=== PATIENT | female | born 1955 | race Two or more races ===

== ENCOUNTER 2016-02-23 05:35 | Inpatient (IN) | payer BC ==
--- NOTE | 2016-02-21 22:50 | PREOPHP ---
DATE OF ADMISSION: 02/23/2016 The patient is coming for surgery on 02/23/2016. HISTORY OF PRESENT ILLNESS: This is a 59-year-old female, 4, para 4, with 3 living children . The fourth vaginal delivery at the age of 3. This patient's last menstrual period was at ag e 49. She has been referred to me due to a mass that comes out of her vagina, with also of urinary incontinence with urgency and stress incontinence. She has no pain on urination. She feels dry. S he is not sexually active. She has constipation. This patient has had diabetes for 12 years, contr olled with metformin twice a day, and she had a previous tubal ligation. ALLERGIES: SHE HAS NO ALLERGIES. FAMILY HISTORY: Breast cancer in her sister at the age of 39. Father is alive. Her mother of a stroke. REVIEW OF SYSTEMS: Negative for cardiovascular disease, lung disease, endocrine disease, except for diabetes. PHYSICAL EXAMINATION: VITAL SIGNS: The blood pressure is 110/80, pulse is 80, she is afebrile. She weighs 167. She is 5 feet 4 inches. HEAD AND NECK: Normal. BREASTS: Soft, nontender, no masses. CHEST: Clear. HEART: Normal sinus rhythm. LUNGS: Clear. ABDOMEN: Soft, nontender, no masses. GENITALIA: With vaginal atrophy, a cystourethrocele grade III, with a rectocele grade III, uterine prolapse grade III, with a normal to small size uterus. EXTREMITIES: Normal. DIAGNOSES: 1. Pelvic prolapse, grade III. 2. Mixed incontinence with urinary stress incontinence and urgency. 3. Rectocele. 4. Constipation. 5. Diabetes. 6. Menopausal 7. Vaginal atrophy. PLAN: She is undergoing a vaginal total hysterectomy, and anterior and posterior repair, with a sli ng and a graft. The patient has been treated with Premarin cream. The urinalysis has been normal. She was advised of the possibility of an abdominal opening in case of complications. She had a goo d Pap smear. HPV was positive, most likely due to her prolapse. The patient has been advised of th e possible risks and possible complications of the uterus, with her alternatives and options. Writt en information was provided. She had no more questions, and she agreed to go ahead with the procedu re with full understanding and no more questions. She was advised of using a sling versus not using a sling and a graft, with all the possible risks and complications, and she had agreed to go ahead with it. Dictated By: TALA PORTER/SARAH Conf#: [id number] DID#: [id number]
[~2016-02-23] VITALS: Ht 162.6 cm; Wt 73.1 kg
[2016-02-23] VITALS (18 sets, daily range): BP systolic 114–139; BP diastolic 65–83; PULSE 60–92; RESP 10–21; Ht 162.6 cm; Wt 73.1 kg
[2016-02-23] MEDS ORDERED: METF-385 PO (06:56)
[2016-02-23] MEDS ORDERED: CALC600T11 PO (06:59)
[2016-02-23] MEDS ORDERED: OMEG1CAP2 PO (06:59)
[2016-02-23] MEDS ORDERED: FOL8 PO (06:59)
[2016-02-23] MEDS ORDERED: PYRI25TA12 PO (07:04)
[2016-02-23] MEDS ORDERED: CYAN500T46 PO (07:04)
[2016-02-23] MEDS ORDERED: GLUC15002 PO (07:04)
[2016-02-23] MEDS ORDERED: THROMBIN 5000 UNIT VIAL ONE (07:08)
[2016-02-23] MEDS ORDERED: BUPIVACAINE 0.25%/EPI (SDV) 30 ML INJ ONE ×2 (07:08→08:33)
[2016-02-23] MEDS ORDERED: MIDAZOLAM 1 MG/ML 2 ML INJ ONE (07:37)
[2016-02-23] MEDS ORDERED: FENTAnyl 50 MCG/ML VIAL ONE (07:37)
[2016-02-23] MEDS ORDERED: morphine SULFATE/PF (10 MG/10 ML) INJ ONE (07:38)
[2016-02-23] MEDS ORDERED: PROPOFOL 20 ML ONE (10:28)
[2016-02-23] MEDS ORDERED: ONDANSETRON 4 MG INJ ONE (10:28)
[2016-02-23] MEDS ORDERED: CEFAZOLIN 1 GM INJ ONE (10:28)
[2016-02-23] MEDS ORDERED: LIDOCAINE 2% (SDV) 5 ML INJ ONE (10:28)
[2016-02-23] MEDS ORDERED: DIPHENHYDRAMINE 50 MG CAP PO PRN (10:30)
[2016-02-23] MEDS ORDERED: BISACODYL (EC) 5 MG TAB PO PRN (10:30)
[2016-02-23] MEDS ORDERED: ZOLPIDEM 5 MG TAB PO PRN (10:30)
[2016-02-23] MEDS ORDERED: HYDROmorphONE 1 MG/ML SYG IV PRN (10:30)
[2016-02-23] MEDS ORDERED: HYDROCODONE/APAP (5/325) TAB PO PRN ×2 (10:30)
--- NOTE | 2016-02-23 10:46 | OPPN ---
Date/Time of Note Date/Time of Note DATE: 02/23/16 TIME: 10:38 Operative/Procedure Note VAGINAL TOTAL HYSTERECTOMY, LEFT OVARIAN BIOPSY ANTERIOR AND POSTERIOR REPAIR SUBURETHRAL SLING PROCEDURE- OBTRYX SLING ACELL AND XENFORM GRAFT Pre-Operative Diagnosis COMPLETE UTEROVAGINAL PROLAPSE CYSTOURETHROCELE GRADE 3 RECTOCELE MIXED INCONTINENCE CONSTIPATION DIABETES MENOPAUSE Post-Operative Diagnosis SAME Surgeon: TALA PERKINS MD Payroll And Benefits Assistant: MAHIN MOORE MD Anesthesiologist: MELISA HOLDEN MD Implants/Grafts ACELL AND XENFORM GRAFT OBTRYX SLING Estimated blood loss: 10 - 50 ml's Drains MCCARTNEY CATHETER Specimens UTERUS , LEFT OVARIAN BIOPSY VAGINAL BIOPSY Complications: None Anesthesia type: general TALA PERKINS MD Feb 23, 2016 10:46
[2016-02-23] MEDS ORDERED: ONDANSETRON 4 MG INJ IV PRN (11:00)
[2016-02-23] MEDS ORDERED: GLUCOSE GEL 15 GRAM TUBE PO PRN ×2 (11:30)
[2016-02-23] MEDS ORDERED: GLUCOSE GEL 15 GRAM TUBE BUCCAL PRN (11:30)
[2016-02-23] MEDS ORDERED: DEXTROSE 50% 50 ML SYRINGE IV PRN ×2 (11:30)
[2016-02-23] MEDS ORDERED: GLUCAGON 1 MG INJ IM PRN (11:30)
[2016-02-23] MEDS ORDERED: FLUCONAZOLE 150 MG TAB PO ONE (12:00)
[2016-02-23] MEDS: LACTATED RINGER'S 1,000 ML IV SCH ×3 (12:33→23:01)
[2016-02-23] MEDS: KETOROLAC 30 MG INJ IV SCH ×3 (12:34→23:01)
[2016-02-23] MEDS: METOCLOPRAMIDE 10 MG TAB PO SCH ×2 (12:38→17:30)
--- NOTE | 2016-02-23 12:40 | OPR ---
DATE OF OPERATION: 02/23/2016 PROCEDURES: 1. Vaginal total hysterectomy. 2. Anterior and posterior colporrhaphy. 3. Suburethral and mid urethral Obtryx sling. 4. and Xenform graft. 5. Left ovarian biopsy. PREOPERATIVE DIAGNOSES: Complete uterovaginal prolapse with cystourethrocele grade III, rectocele g rade III, mixed incontinence, constipation, diabetes, and menopause. POSTOPERATIVE DIAGNOSIS: Complete uterovaginal prolapse with cystourethrocele grade III, rectocele grade III, mixed incontinence, constipation, diabetes, and menopause. SURGEON: Tala Abreu MD OIL RAG WASHER: Rene Loyd MD ANESTHESIOLOGIST: Adair Kuhn MD COMPLICATIONS: None. DESCRIPTION OF PROCEDURE: Patient was given general anesthesia and Duramorph anesthesia, placed in the lithotomy position. The perineal and vaginal area were prepped and draped. The examination und er anesthesia revealed that the uterus was prolapsed to a complete prolapse of the uterus, the cervi x seen outside. The vaginal speculum was applied, and the cervix was held with a Yahir clamp. A ci rcular injection at the cervical-vaginal junction was done with Xylocaine and epinephrine, and an in cision was made at this level. The anterior cul-de-sac was found. Then the posterior cul-de-sac wa s found. There was a small rent visualized anteriorly to the bladder that was sutured in 3 layers w ith 2-0 Vicryl and #0 Vicryl. The cardinal ligaments and uterosacral ligaments were clamped with He aney clamps and sutured with 2 sutures with #1 Vicryl and good hemostasis was achieved. The uterine vessels, ovarian ligament, and tubes in both sides were also clamped, cut, and ligated with figure- of-eight sutures with #1 Vicryl. The uterus was removed by inverting the uterus. The uterus body w as small, has a long cervix. The visualized left ovarian growth that was possibly consistent with a fibroid that was biopsied with cautery and removed. Both ovaries were very high up and they were s een being normal. The tubes were not apparently close to the incision. The peritonealization was d one by applying sutures to the posterior vaginal mucosa interruptedly with #1 Vicryl, and the suture around the peritoneum a pursestring suture of #0 Vicryl was used, and the cavity was closed. The a dnexal pedicles and the cardinal ligament stumps were tied to ipsilateral side. These sutures were brought out to the anterior and posterior vaginal mucosa. The vaginal mucosa was closed vertically with interrupted sutures with #1 Vicryl. At the time where the adnexal ligaments and cardinal ligam ents were tied up, a good lift of the vaginal vault was observed. The hemostasis was good. At this time, a midline incision was made 2 cm below the urethral meatus after injection of Xylocaine and e pinephrine and Marcaine with epinephrine all the way down to the vaginal cuff, and the vagina anteri yamilet was incised in the midline and the bladder was from the anterior vaginal mucosa. The Dao catheter had been placed in the bladder with clear urine. A pursestring suture with #2-0 Akash ryl was done around the bladder for plication of the fundus. The lateral dissection was done digita lly to the obturator internal muscle. A small incision was made 2 cm below the adductor longus tend on parallel to the clitoris, and the Obtryx needle was passed through this level and was retrieved p eriurethrally. The sling was attached, and this was done on both sides, and the sling arms were pas sed through the obturator canal. The remnants of the sling were trimmed at the level of the skin, a nd Dermabond was used on this area. A piece of ACell was placed between the urethral area, bladder, between that and the sling and on top of that a piece of Xenform was applied to prevent the protrus ion of the sling and the bladder area. The other side of the sling was also covered with a piece of Xenform and ACell, and the vagina was closed after injection of FloSeal in both corners. At this t esther, the hemostasis had been very good. The vagina was closed vertically with interrupted sutures w ith 2-0 Vicryl, and the posterior colporrhaphy was started by making a triangular incision at the pe rineum. This portion of the skin was removed, and a midline incision was made after injection of th e Xylocaine and epinephrine about 5 cm up the vaginal canal, the rectocele was from the po sterior vaginal mucosa and plicated with 2-0 Vicryl. The remnant of vaginal mucosa was trimmed. Th e vaginal mucosa was closed with 2-0 Vicryl interrupted sutures. At the perineal area, deep stitche s were approximating the levator ani muscle from one side to the other side with #1 Vicryl. The per ineal area was closed as a regular episiotomy with 2-0 Vicryl and 3-0 Vicryl, and Xeroform gauze was left in the vagina. The patient tolerated the procedure well and left the OR awake and stable. Sp onge counts and instrument counts were correct. Intravenous antibiotics were given for prophylaxis. Blood loss was minimal. The urine was clear at the end of the procedure, and the patient left the OR awake and stable. Dictated By: TALA PORTER/SARAH Conf#: [id number] DID#: [id number]
[2016-02-23] MEDS: CEFAZOLIN 1 GM/50 ML (PMX) 50 ML IVPB SCH ×2 (14:43→21:08)
[2016-02-23] MEDS: metFORMIN 850 MG TAB PO SCH (17:30)
[2016-02-23] MEDS ORDERED: metFORMIN 850 MG TAB PO SCH (18:00)
[2016-02-24] MEDS: METOCLOPRAMIDE 10 MG TAB PO SCH ×5 (00:14→22:39)
[2016-02-24 00:26] VITALS: BP 112/57; RESP 18
[2016-02-24] MEDS: KETOROLAC 30 MG INJ IV SCH ×4 (04:44→22:39)
[2016-02-24 05:16] VITALS: BP 110/63; PULSE 73; RESP 18
[2016-02-24 05:26] LABS: POTASSIUM 3.6 mmol/L (3.5-5.1)
[2016-02-24 05:29] LABS: CREATININE 0.58 mg/dl (0.44-1.00)
[2016-02-24 05:35] LABS: BASOPHILS % 0.3 % (0.0-2.0); EOSINOPHILS # 0.1 10^3/ul (0.0-0.5); EOSINOPHILS % 1.2 % (0.0-7.0); HEMATOCRIT 34.6 % (37.0-47.0); HEMOGLOBIN 11.8 g/dl (12.0-16.0); LYMPHOCYTES # 1.7 10^3/ul (0.8-2.9); LYMPHOCYTES % 21.4 % (15.0-51.0); MEAN CORPUSCULAR HEMOGLOBIN 29.9 pg (29.0-33.0); MEAN CORPUSCULAR HGB CONC 34.2 g/dl (32.0-37.0); MEAN CORPUSCULAR VOLUME 87.5 fl (82.0-101.0); MEAN PLATELET VOLUME 8.9 fl (7.4-10.4); MONOCYTE # 0.7 10^3/ul (0.3-0.9); MONOCYTES % 9.2 % (0.0-11.0); NEUTROPHIL # 5.5 10^3/ul (1.6-7.5); NEUTROPHILS % 67.9 % (39.0-77.0); PLATELET COUNT 220 10^3/UL (140-440); RED BLOOD COUNT 3.96 10^6/ul (4.20-5.40); RED CELL DISTRIBUTION WIDTH 13.8 % (11.5-14.5); UNCORRECTED WBC 8.1 10^3/ul (4.8-10.8); WHITE BLOOD COUNT 8.1 10^3/ul (4.8-10.8)
[2016-02-24] MEDS: CEFAZOLIN 1 GM/50 ML (PMX) 50 ML IVPB SCH ×3 (05:48→22:39)
[2016-02-24 06:21] LABS: CONDITION 1
[2016-02-24 07:39] VITALS: BP 104/58; RESP 18
[2016-02-24] MEDS: metFORMIN 850 MG TAB PO SCH ×2 (08:54→17:01)
[2016-02-24] MEDS: PYRIDOXINE 50 MG TAB PO SCH (08:54)
[2016-02-24] MEDS ORDERED: PYRIDOXINE 50 MG TAB PO SCH (09:00)
--- NOTE | 2016-02-24 11:02 | PN ---
Date/Time of Note Date/Time of Note DATE: 02/24/16 TIME: 10:59 Assessment/Plan Lines/Catheters IV Catheter Type (from Nrsg): Peripheral IV Garcia in Place (from Nrsg): Yes Subjective 24 Hr Interval Summary feels good not in pain afebrile blood sugar elevated diet adjusted patient advised about surgery findings and procedure and she is grateful urine culture after surgery with E COLI 100.000 we will treat Constitutional: BM, ambulates, flatus, improved, no complaints, urine output Feeding: advancing diet Pain Control: well controlled Detailed Summary Eyes: no complaints ENT: no complaints Respiratory: no complaints Cardiovascular: no complaints Gastrointestinal: no complaints Genitourinary: no complaints Musculoskeletal: no complaints Skin: no complaints Neurologic: no complaints Endocrine: no complaints Lymphatic: no complaints Psychological: nl mood/affect, no complaints Immunologic: no complaints Exam/Review of Systems Vital Signs Vitals Vital Signs Date Time Temp Pulse Resp B/P Pulse Ox O2 Delivery O2 Flow Rate FiO2 02/24/16 07:39 98.9 78 18 104/58 93 02/24/16 05:16 Room Air Intake and Output 02/23/16 02/23/16 02/24/16 15:00 23:00 07:00 Intake Total 1400 ml 650 ml 1950 ml Output Total 30 ml 1300 ml 2100 ml Balance 1370 ml -650 ml -150 ml Exam Free Text/Dictation garcia to stay for 2 weeks due to extensive surgery Constitutional: alert, oriented, well developed Psych: nl mood/affect, no complaints Head: atraumatic, normocephalic Eyes: EOMI, nl conjunctiva, nl lids, nl sclera ENMT: mucosa pink and moist, nl external ears & nose, nl lips & teeth, nl nasal mucosa & septum Neck: non-tender, supple Respiratory: clear to auscultation, normal air movement Cardiovascular: nl pulses, regular rate and rhythm Gastrointestinal: nl liver, spleen, non-tender, soft Genitourinary - Female: No CMT, No CVA tenderness, No nl adnexae, No nl external genitalia, No other, No uterus Musculoskeletal: nl extremities to inspection, nl gait and stance Extremities: normal pulses Neurological: LOCKER ATTENDANT II-XII intact, nl mental status, nl speech, nl strength Skin: nl turgor, rash or lesions Lymph: nl lymph nodes Results Result Diagram: 02/24/16 0421 02/24/16 0421 TALA PERKINS MD Feb 24, 2016 11:02
[2016-02-24] MEDS: LACTATED RINGER'S 1,000 ML IV SCH ×2 (11:20→22:39)
[2016-02-24 20:41] VITALS: BP 121/64; RESP 18
[2016-02-25] MEDS: CEFAZOLIN 1 GM/50 ML (PMX) 50 ML IVPB SCH ×2 (05:07→14:08)
[2016-02-25] MEDS: METOCLOPRAMIDE 10 MG TAB PO SCH ×3 (05:07→17:25)
[2016-02-25] MEDS: KETOROLAC 30 MG INJ IV SCH ×3 (05:07→17:24)
[2016-02-25 05:53] LABS: BASOPHILS % 0.3 % (0.0-2.0); EOSINOPHILS # 0.1 10^3/ul (0.0-0.5); EOSINOPHILS % 1.5 % (0.0-7.0); HEMOGLOBIN 12.1 g/dl (12.0-16.0); LYMPHOCYTES # 1.7 10^3/ul (0.8-2.9); LYMPHOCYTES % 21.2 % (15.0-51.0); MEAN CORPUSCULAR HEMOGLOBIN 30.2 pg (29.0-33.0); MEAN CORPUSCULAR HGB CONC 34.6 g/dl (32.0-37.0); MEAN CORPUSCULAR VOLUME 87.3 fl (82.0-101.0); MEAN PLATELET VOLUME 8.8 fl (7.4-10.4); MONOCYTE # 0.8 10^3/ul (0.3-0.9); MONOCYTES % 9.4 % (0.0-11.0); NEUTROPHIL # 5.6 10^3/ul (1.6-7.5); NEUTROPHILS % 67.6 % (39.0-77.0); PLATELET COUNT 220 10^3/UL (140-440); RED CELL DISTRIBUTION WIDTH 13.7 % (11.5-14.5); UNCORRECTED WBC 8.2 10^3/ul (4.8-10.8); WHITE BLOOD COUNT 8.2 10^3/ul (4.8-10.8)
[2016-02-25 05:57] LABS: CONDITION 1
[2016-02-25 07:00] VITALS: BP 123/61; RESP 20
[2016-02-25] MEDS: metFORMIN 850 MG TAB PO SCH ×2 (08:22→17:24)
[2016-02-25] MEDS: PYRIDOXINE 50 MG TAB PO SCH (08:22)
--- NOTE | 2016-02-25 11:57 | PD.PPDC ---
E D TECH Discharge Instruction Condition Patient Condition: Good Diet Diet: Resume Regular Diet Activity/Restrictions Activity: Normal Activity May Shower Restrictions: No Exercising No Lifting No Driving No Sexual Activity Nothing in the Vagina No Acorn No Tampons, douche Follow-up Follow-up with Physician: 1, 2, Week/Weeks Return to clinic for COPY CLERK Instructions: Fever greater than 101 Chills Worsening abdominal pain Excessive Vaginal Bleeding More than 2 pads per hour Unable to tolerate diet TALA PERKINS MD Feb 25, 2016 11:57
[2016-02-25] MEDS: LACTATED RINGER'S 1,000 ML IV SCH (13:40)
--- NOTE | 2016-02-25 19:03 | DS ---
DATE OF ADMISSION: 02/23/2016 DATE OF DISCHARGE: 02/25/2016 FINAL DIAGNOSES: 1. Complete urethrovaginal prolapse with uterine prolapse grade III. 2. Mixed incontinence, urinary stress incontinence and urgency. 3. Rectocele grade III. 4. Constipation. 5. Cystourethrocele. 6. Diabetes. 7. Menopause. 8. Vaginal atrophy. POSTOPERATIVE DIAGNOSES: 1. Complete urethrovaginal prolapse with uterine prolapse grade III. 2. Mixed incontinence, urinary stress incontinence and urgency. 3. Rectocele grade III. 4. Constipation. 5. Cystourethrocele. 6. Diabetes. 7. Menopause. 8. Vaginal atrophy. CONDITION: The patient's condition is good. PROCEDURE: Vaginal total hysterectomy, anterior and posterior colporrhaphy, suburethral sling and graft. HISTORY: This is a 60-year-old female, 4, para 4 with 3 living children. The patient had b een having a mass that was coming out of her vagina with urinary incontinence with urgency and urina ry stress incontinence. This was getting worse and with pelvic pressure and pain. She was having d ifficulty sexually with her due to this, also with constipation. The patient had diabetes f or 12 years and she has been controlled with metformin twice a day. She also had a previous tubal l igation. She underwent a vaginal total hysterectomy, anterior repair and sling and a graft without complications. She had an UTI that was undiagnosed before surgery, for this reason she is undergoin g antibiotic treatment. She is sent home today with a Dao catheter due to the extensiveness of the vaginal surgery, to be removed in the office. She was sent home on ibuprofen, Somers p.r.n., Keflex and omeprazole, and con tinue with her metformin and alprazolam, and further instructions on her diet. She is to see me in the office in a week or earlier if she had any problems. The patient at this moment is afebrile. S he has no complaints. She has been passing gasses and she has clear urine. Her laboratory testing revealed that her white count was normal and her hemoglobin is 12.1 and hematocrit of 35, and no sig ns of infection. The patient had been on Ancef and now she was transferred to Keflex q.i.d. for 10 days. She is advised what to do and not to do at home. She is stable and in good condition. She i s ambulatory and feeling good to go home. She is going home under her own care and her children. T he followup will be in the office at any time. She was given my cell phone and she will see me in t he office otherwise in a week. Dictated By: TALA PORTER/SARAH Conf#: [id number] DID#: [id number]
== END 2016-02-25 19:00 | disposition home or self-care (01) | DRG 743 ==
LOC: REC 05:35 → MS1 11:57
PROVIDERS: ADMIT Obstetrics & Gynecology; ATTEND Obstetrics & Gynecology
PROC: 0UTC0ZZ Resection of Cervix, Open Approach (ICD-10-PCS; 2016-02-23)
PROC: 0UB10ZX Excision of Left Ovary, Open Approach, Diagnostic (ICD-10-PCS; 2016-02-23)
PROC: 0TSD0ZZ Reposition Urethra, Open Approach (ICD-10-PCS; 2016-02-23)
PROC: 0JQC0ZZ Repair Pelvic Region Subcutaneous Tissue and Fascia, Open Approach (ICD-10-PCS; 2016-02-23)
PROC: 0JQC0ZZ Repair Pelvic Region Subcutaneous Tissue and Fascia, Open Approach (ICD-10-PCS; 2016-02-23)
PROC: 0UT90ZZ Resection of Uterus, Open Approach (ICD-10-PCS; principal; 2016-02-23 07:30)
DX: N81.3 Complete uterovaginal prolapse (principal); E11.9 Type 2 diabetes mellitus without complications; N39.46 Mixed incontinence; R39.15 Urgency of urination; K59.00 Constipation, unspecified; N95.2 Postmenopausal atrophic vaginitis; N83.8 Other noninflammatory disorders of ovary, fallopian tube and broad ligament
CPT/HCPCS: 80051; 82565; 82962; 84520; 85025; 86850; 86900; 86901; 86920; 87086; 88307; C1771; C1781; J0690; J1885; J2250; J2274; J2405; J3010; J7120; Q4119

== ENCOUNTER 2016-05-11 08:47 | Day surgery (SDC) | payer BC ==
[~2016-05-11] VITALS: Ht 162.6 cm; Wt 73.4 kg
[~2016-05-11 08:47] MED LIST: CALC600T11 PO; CYAN500T46 PO; FOL8 PO; GLUC15002 PO; METF850T PO; OMEG1CAP2 PO; PYRI25TA12 PO
[2016-05-11 10:02] VITALS: Ht 162.6 cm; Wt 73.4 kg
[2016-05-11 10:29] VITALS: BP 151/82; PULSE 75; RESP 18
[2016-05-11] MEDS ORDERED: MIDAZOLAM 1 MG/ML 2 ML INJ ONE ×2 (10:57→10:58)
[2016-05-11] MEDS ORDERED: FENTAnyl 50 MCG/ML VIAL ONE (10:58)
[2016-05-11 11:30] VITALS: BP 110/66; PULSE 60; RESP 18
--- NOTE | 2016-05-12 08:00 | GILP ---
DATE OF PROCEDURE: PROCEDURE PERFORMED: Colonoscopy with biopsy. INDICATION: A 61-year-old female undergoing this procedure for colon cancer screening and positive stool guaiac. The risks of the procedure, related and unrelated complications, anesthetic risks, se dative risks, alternatives discussed, informed consent was obtained. DESCRIPTION OF PROCEDURE: The patient was brought to the GI lab, sedated with Versed and fentanyl a nd after optimal sedation, digital examination done. Sphincter tone was normal. No mass was felt. Pediatric colonoscope passed with much ease into rectum; advanced through sigmoid, descending, briceno sverse colon all the way into cecum and finally into terminal ileum. Terminal ileum was normal up t o 2 feet. While coming out, mucosa thoroughly inspected. Appendix was normal. There was a diminut felipe polyp near the hepatic flexure successfully removed with jumbo biopsy forceps. Rest of the colo n was normal except for the mild diverticulosis. Retroversion done, no internal hemorrhoids identif ied. The patient had AVM at 20 cm which was 0.5 cm in diameter. External hemorrhoids identified. IMPRESSION: 1. External hemorrhoids. 2. 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 3. Mild diverticulosis. 4. Polyp near the hepatic flexure, diminutive, successfully removed. 5. Normal all the way into the cecum. 6. Normal terminal ileum. PLAN: Stay on high fiber diet. Will review the histopathology of the polyp. Dictated By: SIM AVLE/SARAH Conf#: [id number] DID#: [id number]
== END 2016-05-11 11:14 | disposition home or self-care (01) ==
LOC: GIL 08:47
PROVIDERS: ATTEND Internal Medicine Gastroenterology
DX: Z12.11 Encounter for screening for malignant neoplasm of colon (principal); E11.9 Type 2 diabetes mellitus without complications; K64.4 Residual hemorrhoidal skin tags; K57.90 Diverticulosis of intestine, part unspecified, without perforation or abscess without bleeding; K63.5 Polyp of colon
CPT/HCPCS: 45380; 88305; J2250; J3010; Z7610

== ENCOUNTER → 2017-03-29 | Outpatient (CLI) | END | disposition home or self-care (01) ==